=== PATIENT | male | born 1960 ===

== ENCOUNTER 2018-03-31 21:05 | Inpatient (IN) | payer OTHER ==
[2018-03-31 21:05] VITALS: PULSE 87
[2018-03-31 21:14] VITALS: BMI 24.5
--- NOTE | 2018-03-31 21:17 | ED PDOC ---
Arrival/HPI - General Chief Complaint: Chest Pain Time Seen by Provider: 03/31/18 21:08 Historian: Patient, Family - History of Present Illness Narrative History of Present Illness (Text): 03/31/18 21:16 Prasanth Lamas is a 58 year old male, whose past medical history includes atrial fibrillation, hypertension, cardiomyopathy, and alcohol abuse, who presents to the Emergency department accompanied by family complaining of chest pain. Patient states he has been experiencing intermittent chest heaviness radiating to his left shoulder for the past 2 days, worsening tonight. Patient states he stopped taking his medication for his atrial fibrillation. Patient denies any fever, chills, shortness of breath, nausea, vomiting, back pain, neck pain, headache, dizziness, ideation or any other complaints. Symptom Onset: Gradual Symptom Course: Intermittent, Worsening Quality: Other (Heaviness) Activities at Onset: Light Context: Home Past Medical History - Provider Review Nursing Documentation Reviewed: Yes - Infectious Disease Hx of Infectious Diseases: None - Tetanus Immunization Tetanus Immunization: Unknown - Past Medical History Past Medical History: No Previous - Cardiac Hx Cardiac Disorders: Yes Hx Atrial Fibrillation: Yes Hx Cardiac Arrhythmia: Yes (afib) - Pulmonary Hx Respiratory Disorders: No - Neurological Hx Neurological Disorder: No - HEENT Hx HEENT Disorder: No - Renal Hx Renal Disorder: No - Endocrine/Metabolic Hx Endocrine Disorders: No - Hematological/Oncological Hx Blood Disorders: No - Integumentary Hx Dermatological Disorder: No - Musculoskeletal/Rheumatological Hx Musculoskeletal Disorders: Yes Hx Falls: No Hx Osteoporosis: Yes (left shoulder) - Gastrointestinal Hx Gastrointestinal Disorders: No - Genitourinary/Gynecological Hx Genitourinary Disorders: No - Psychiatric Hx Psychophysiologic Disorder: No Hx Substance Use: No - Past Surgical History Past Surgical History: No Previous - Anesthesia Hx Anesthesia Reactions: No - Suicidal Assessment Feels Threatened In Home Enviroment: No Family/Social History - Physician Review Nursing Documentation Reviewed: Yes Family/Social History: Unknown Family HX Smoking Status: Never Smoked Hx Alcohol Use: Yes (started again 4 days ago) Frequency of alcohol use: Daily Hx Substance Use: No Hx Substance Use Treatment: No Allergies/Home Meds Allergies/Adverse Reactions: Allergies No Known Allergies Allergy (Verified 03/31/18 21:09) Review of Systems - Physician Review All systems were reviewed & negative as marked: Yes - Review of Systems Constitutional: Normal. absent: Fevers Eyes: Normal ENT: Normal Respiratory: Normal. absent: SOB, Cough Cardiovascular: Chest Pain Gastrointestinal: Normal. absent: Abdominal Pain, Diarrhea, Nausea, Vomiting Genitourinary Male: Normal. absent: Dysuria, Frequency, Hematuria, Urinary Output Changes Musculoskeletal: Normal. absent: Back Pain, Neck Pain Skin: Normal. absent: Rash Neurological: Normal. absent: Headache, Dizziness Endocrine: Normal Hemo/Lymphatic: Normal Psychiatric: Normal Physical Exam Vital Signs Reviewed: Yes Vital Signs Temp Pulse Resp BP Pulse Ox 03/31/18 22:49 118 H 136/94 H 03/31/18 21:05 98.2 F 88 18 130/93 H 99 Temperature: Afebrile Blood Pressure: Normal Pulse: Regular Respiratory Rate: Normal Appearance: Positive for: Well-Appearing, Non-Toxic, Comfortable Pain Distress: None Mental Status: Positive for: Alert and Oriented X 3 - Systems Exam Head: Present: Atraumatic, Normocephalic Pupils: Present: PERRL Extroacular Muscles: Present: EOMI Conjunctiva: Present: Normal Mouth: Present: Moist Mucous Membranes Neck: Present: Normal Range of Motion Respiratory/Chest: Present: Clear to Auscultation, Good Air Exchange. No: Respiratory Distress, Accessory Muscle Use Cardiovascular: Present: Normal S1, S2, Irregular Rhythm (Irregular, regular rhythm). No: Murmurs Abdomen: No: Tenderness, Distention, Peritoneal Signs Back: Present: Normal Inspection Upper Extremity: Present: Normal Inspection. No: Cyanosis, Edema Lower Extremity: Present: Normal Inspection. No: Edema Neurological: Present: GCS=15, CN II-XII Intact, Speech Normal Skin: Present: Warm, Dry, Normal Color. No: Rashes Psychiatric: Present: Alert, Oriented x 3, Normal Insight, Normal Concentration Medical Decision Making ED Course and Treatment: 03/31/18 21:16 Impression: 58 year old male complaining of chest heaviness radiating to left shoulder\ Plan: -- EKG -- Chest X-ray -- Labs, cardiac enzymes -- Aspirin -- Nitroglycerin -- Cardizem -- Morphine -- Reassess and disposition Prior Visits: Notes and results from previous visits were reviewed. Progress Notes: Reviewed EKG, a fib at [address] RVR. Non-specific ST/T wave changes. 03/31/18 22:43 Chest X-ray reviewed, shows no acute processes. 03/31/18 22:51 Case discussed with biomedical equipment tech diamond sizer and grader, who is aware and agrees with plan. 03/31/18 22:[address] Oakley, who is aware and agrees with plan. Accepts pt in to the hospitalist service. Pt will go to Telemetry observation for chest pain and atrial fibrillation. - Lab Interpretations Lab Results: 03/31/18 21:45 03/31/18 21:45 Lab Results 03/31/18 21:45: WBC 11.1 H D, RBC 4.85, Hgb 16.0, Hct 45.0, MCV 92.8, MCH 33.0, MCHC 35.6, RDW 14.3, Plt Count 298, MPV 9.1 03/31/18 21:45: Sodium 144, Potassium 4.4, Chloride 102, Carbon Dioxide 27, Anion Gap 20, BUN 16, Creatinine 0.9, Est GFR ( Amer) > 60, Est GFR (Non- Af Amer) > 60, Random Glucose 109, Calcium 8.6, Total Bilirubin 0.3, AST 77 H D , ALT 53, Alkaline Phosphatase 119, Lactate Dehydrogenase 686, Total Creatine Kinase 106, Troponin I < 0.01, Total Protein 8.3, Albumin 4.7, Globulin 3.6, Albumin/Globulin Ratio 1.3 03/31/18 21:45: PT 10.2, INR 0.90 L, APTT 27.6 - RAD Interpretation Radiology Orders: 03/31/18 21:18 CHEST PORTABLE [RAD] Stat Preforming Machine Operator: ED Physician - EKG Interpretation Interpreted by ED Physician: Yes Type: 12 lead EKG - Medication Orders Current Medication Orders: diltiaZEM IVPB 100mg in NS (Cardizem 100mg In Ns) 100 mls @ 5 mls/hr IV .Q20H PRN; Protocol; 5 MG/HR PRN Reason: TITRATE PER MD ORDER Discontinued Medications Aspirin (Aspirin) 325 mg PO ONCE STA Stop: 03/31/18 21:27 Last Admin: 03/31/18 22:50 Dose: 325 mg Diltiazem HCl (Cardizem) 15 mg IVP ONCE ONE Stop: 03/31/18 21:24 Last Admin: 03/31/18 22:49 Dose: 15 mg IVP Administration Document 03/31/18 22:49 SANCHEZ (Rec: 03/31/18 22:49 [id number] [id number]) Charges for Administration # of IVP Administrations 1 MAR Pulse and Blood Pressure Document 03/31/18 22:49 SANCHEZ (Rec: 03/31/18 22:49 [email or web address] [id number]) Pulse Pulse Rate (60-90 beats/min) 118 Blood Pressure Blood Pressure (100/60-150/90 mm Hg) 136/94 Enoxaparin Sodium (Lovenox) 70 mg SC STAT STA PRN Reason: Protocol Stop: 03/31/18 22:42 Last Admin: 03/31/18 22:50 Dose: 70 mg Subcutaneous Administrations Document 03/31/18 22:50 SANCHEZ (Rec: 03/31/18 22:51 [id number] [id number]) Injection Site MAR Injection Site Right Abdomen Charges for Administration # of Subcutaneous Administrations 1 Morphine Sulfate (Morphine) 2 mg IVP STAT STA Stop: 03/31/18 21:27 Last Admin: 03/31/18 22:50 Dose: 2 mg MAR Pain Assessment Document 03/31/18 22:50 SANCHEZ (Rec: 03/31/18 22:50 SANCHEZ [id number]) Pain Reassessment Is this a pain reassessment? No IVP Administration Document 03/31/18 22:50 SANCHEZ (Rec: 03/31/18 22:50 SANCHEZ [id number]) Charges for Administration # of IVP Administrations 1 Morphine Sulfate (Morphine) 4 mg IVP STAT STA Stop: 03/31/18 22:50 Nitroglycerin (Nitro-Bid 2% Oint) 1 ea TOP ONCE STA Stop: 03/31/18 21:27 Last Admin: 03/31/18 22:51 Dose: 1 ea - Scribe Statement The provider has reviewed the documentation as recorded by the Scribtala Jasso All medical record entries made by the Tiffanieibtala were at my direction and personally dictated by me. I have reviewed the chart and agree that the record accurately reflects my personal performance of the history, physical exam, medical decision making, and the department course for this patient. I have also personally directed, reviewed, and agree with the discharge instructions and disposition. Disposition/Present on Arrival - Present on Arrival Any Indicators Present on Arrival: No History of DVT/PE: No History of Uncontrolled Diabetes: No Urinary Catheter: No History of Decub. Ulcer: No History Surgical Site Infection Following: None - Disposition Have Diagnosis and Disposition been Completed?: Yes Diagnosis: Atrial fibrillation with RVR, Chest pain in adult Disposition: HOSPITALIZED Disposition Time: 22:57 Condition: STABLE Discharge Instructions (ExitCare): Chest Pain (ED) Forms: [employer] Contacts (Spanish)
[2018-03-31] MEDS ORDERED: Nitroglycerin 2% Ointment Foilpak UD TOP STA (21:26)
[2018-03-31] MEDS ORDERED: Morphine 2 mg/ml ISec IVP STA (21:26)
[2018-03-31 21:52] LABS: MEAN CELL VOLUME 92.8 fl (80.0-105.0); MEAN CORPUSCULAR HGB CONC 35.6 g/dl (31.0-37.0); MEAN PLATELET VOLUME 9.1 fl (7.0-11.0); RBC 4.85 10^6/uL (3.5-6.1); RED CELL DISTRIBUTION WIDTH 14.3 % (11.5-14.5); WHITE BLOOD COUNT 11.1 10^3/ul (4.5-11.0)
[2018-03-31 22:01] LABS: ALB/GLOB RATIO 1.3 (1.1-1.8); ALBUMIN 4.7 g/dL (3.0-4.8); CALCIUM 8.6 mg/dL (8.4-10.5); GFR AFRICAN-AMERICAN > 60; GFR NON-AFRICAN AMERICAN > 60
[2018-03-31 22:07] LABS: ALT/SGPT 53 U/L (7-56); AST/SGOT 77 U/L (17-59); BLOOD UREA NITROGEN 16 mg/dL (7-21); INR 0.9 (0.93-1.08); PARTIAL THROMBOPLASTIN TIME 27.6 Seconds (25.1-36.5); PROTHROMBIN TIME 10.2 SECONDS (9.4-12.5)
[2018-03-31 22:13] LABS: TROPONIN I < 0.01 ng/mL
[2018-03-31] MEDS ORDERED: Enoxaparin 80 mg Syringe SC STA (22:41)
[2018-03-31] MEDS ORDERED: Morphine 4 mg/ml ISec IVP STA (22:49)
[2018-03-31] MEDS ORDERED: diltiaZEM IVPB 100mg in NS 100 ML IV PRN (22:49)
--- NOTE | 2018-03-31 23:46 | CP.PCM.HP ---
<Mac Giordano - Last Filed: 04/01/18 01:52> History of Present Illness - History of Present Illness History of Present Illness: PGY-1 H&P for Dr. Oakley This is a 58 year old male with PMHx A-fib (not on anticoagulation), cardiomyopathy (EF 46%), medication non-compliance, alcohol abuse, shoulder arthritis who presented to the hospital complaining of left sided chest pain. Per patient, this began 2 days ago and has been constant, pressure-like in sensation. There is radiation of pain to the left arm although this is complicated by the fact that the patient states that he has left shoulder arthritis. The patient has not taken medications in months as he has run out of his Lopressor and Aspirin. When asked why he did not see a physician to get more , he replied that he thought he felt fine. Patient admits to having been sober for a year before relapsing and drinking alcohol daily for the past 5 days. His last drink was earlier today at approximately 19:00. Patient admits intermittent palpitations, but he denies shortness of breath. PMHx: A-fib (not on anticoagulation), cardiomyopathy (EF 46%), medication non- compliance, alcohol abuse, shoulder arthritis PSHx: denies Allergies: NKDA Social: States that he smoked briefly as a teenager less than 1 ppd for 3 years. Former alcohol abuser (8-10 shots of vodka daily) with relapse 5 days ago. Has been drinking daily since then with last drink today at 19:00. Denies drug use. Works as a prepper. Family Hx: Father with alzheimer's disease, sister with breast cancer PMD: denies Home meds: Was prescribed Lopressor and ASA on previous visit but does not take them anymore Present on Admission - Present on Admission Any Indicators Present on Admission: No Review of Systems - Constitutional Constitutional: absent: Chills, Fever - EENT Eyes: absent: Change in Vision Ears: absent: Decreased Hearing Nose/Mouth/Throat: absent: Nasal Congestion - Cardiovascular Cardiovascular: Chest Pain, Palpitations (intermittent) - Respiratory Respiratory: absent: Dyspnea - Gastrointestinal Gastrointestinal: absent: Abdominal Pain, Nausea, Vomiting - Genitourinary Genitourinary: absent: Dysuria - Musculoskeletal Musculoskeletal: Other (left shoulder pain). absent: Back Pain - Integumentary Integumentary: absent: Rash - Psychiatric Psychiatric: Anxiety - Endocrine Endocrine: Palpitations (intermittent) Past Patient History - Infectious Disease Hx of Infectious Diseases: None - Tetanus Immunizations Tetanus Immunization: Unknown - Past Social History Smoking Status: Never Smoked - CARDIAC Hx Cardiac Disorders: Yes Hx Atrial Fibrillation: Yes Hx Cardia Arrhythmia: Yes (afib) - PULMONARY Hx Respiratory Disorders: No - NEUROLOGICAL Hx Neurological Disorder: No - HEENT Hx HEENT Problems: No - RENAL Hx Chronic Kidney Disease: No - ENDOCRINE/METABOLIC Hx Endocrine Disorders: No - HEMATOLOGICAL/ONCOLOGICAL Hx Blood Disorders: No - INTEGUMENTARY Hx Dermatological Problems: No - MUSCULOSKELETAL/RHEUMATOLOGICAL Hx Musculoskeletal Disorders: Yes Hx Falls: No Hx Osteoporosis: Yes (left shoulder) - GASTROINTESTINAL Hx Gastrointestinal Disorders: No - GENITOURINARY/GYNECOLOGICAL Hx Genitourinary Disorders: No - PSYCHIATRIC Hx Psychophysiologic Disorder: No Hx Substance Use: No - SURGICAL HISTORY Hx Surgeries: No - ANESTHESIA Hx Anesthesia Reactions: No Meds Allergies/Adverse Reactions: Allergies Allergy/AdvReac Type Severity Reaction Status Date / Time No Known Allergies Allergy Verified 03/31/18 21:09 Physical Exam - Constitutional Appears: No Acute Distress - Head Exam Head Exam: ATRAUMATIC, NORMOCEPHALIC - Eye Exam Eye Exam: EOMI, PERRL - ENT Exam ENT Exam: Mucous Membranes Moist - Respiratory Exam Respiratory Exam: Clear to Auscultation Bilateral, NORMAL BREATHING PATTERN. absent: Rales, Rhonchi, Wheezes - Cardiovascular Exam Cardiovascular Exam: Irregular Rhythm, +S1, +S2. absent: Tachycardia, JVD - GI/Abdominal Exam GI & Abdominal Exam: Normal Bowel Sounds, Soft. absent: Distended, Tenderness - Extremities Exam Extremities exam: Negative for: pedal edema - Neurological Exam Neurological exam: Alert, CN II-XII Intact, Oriented x3 - Psychiatric Exam Psychiatric exam: Anxious - Skin Skin Exam: Dry, Warm Results - Vital Signs Recent Vital Signs: Last Vital Signs Temp 98.2 F 03/31/18 21:05 Pulse 77 03/31/18 23:01 Resp 18 03/31/18 23:01 BP 105/72 03/31/18 23:01 Pulse Ox 99 03/31/18 23:01 - Labs Result Diagrams: 03/31/18 21:45 03/31/18 21:45 Assessment & Plan - Assessment and Plan (Free Text) Assessment: 1. Chest pain -initial EKG shows A-fib with RVR @ 118 bpm -initial troponin within normal limits -f/u serial troponins and EKG 2. A-fib with RVR -RVR corrected with 15 mg IV Cardizem that was given in the ED -f/u drug screen -Cardizem 5 mg IV x1 dose prn HR>120 -Lopressor 50 mg PO BID -Lovenox 80 mg SC Q12H ordered (was given dose of 70 mg in the ED) 3. Alcohol Abuse -Counselled on cessation -f/u serum alcohol level -thiamine, folate, MVI -CIWA protocol -seizure precautions -Ativan 2 mg IV Q6 prn agitation Discussed with Dr. Cele Giordano PGY-1 <Cele BLOOM,Mihir - Last Filed: 04/01/18 10:44> Results - Vital Signs Recent Vital Signs: Last Vital Signs Temp 97.7 F 04/01/18 05:46 Pulse 148 H 04/01/18 09:26 Resp 20 04/01/18 05:46 BP 122/80 04/01/18 09:26 Pulse Ox 96 04/01/18 05:46 - Labs Result Diagrams: 04/01/18 04:35 04/01/18 04:35 Labs: Laboratory Results - last 24 hr 04/01/18 04/01/18 04/01/18 04:35 04:35 04:35 WBC 10.1 RBC 4.26 Hgb 13.8 L D Hct 39.4 L MCV 92.5 MCH 32.4 MCHC 35.0 RDW 14.2 Plt Count 247 MPV 9.1 Gran % 76.5 H Lymph % (Auto) 17.3 L Rush % (Auto) 5.0 Eos % (Auto) 0.7 L Baso % (Auto) 0.5 Gran # 7.72 H Lymph # (Auto) 1.8 Rush # (Auto) 0.5 Eos # (Auto) 0.1 Baso # (Auto) 0.05 Sodium 140 Potassium 4.5 Chloride 103 Carbon Dioxide 23 Anion Gap 19 BUN 16 Creatinine 0.8 Est GFR ( Amer) > 60 Est GFR (Non-Af Amer) > 60 Random Glucose 131 H Calcium 8.4 Phosphorus 3.2 Magnesium 1.7 Total Bilirubin 0.4 AST 49 ALT 51 Alkaline Phosphatase 111 Troponin I < 0.01 Total Protein 7.5 Albumin 4.3 Globulin 3.2 Albumin/Globulin Ratio 1.3 Triglycerides 151 Cholesterol 208 H LDL Cholesterol Direct 126 HDL Cholesterol 72 H Free T4 TSH 3rd Generation 0.40 L 04/01/18 04/01/18 09:30 09:30 WBC RBC Hgb Hct MCV MCH MCHC RDW Plt Count MPV Gran % Lymph % (Auto) Rush % (Auto) Eos % (Auto) Baso % (Auto) Gran # Lymph # (Auto) Rush # (Auto) Eos # (Auto) Baso # (Auto) Sodium Potassium Chloride Carbon Dioxide Anion Gap BUN Creatinine Est GFR ( Amer) Est GFR (Non-Af Amer) Random Glucose Calcium Phosphorus Magnesium Total Bilirubin AST ALT Alkaline Phosphatase Troponin I < 0.01 Total Protein Albumin Globulin Albumin/Globulin Ratio Triglycerides Cholesterol LDL Cholesterol Direct HDL Cholesterol Free T4 0.98 TSH 3rd Generation Attending/Attestation - Attestation I have personally seen and examined this patient.: Yes I have fully participated in the care of the patient.: Yes I have reviewed all pertinent clinical information: Yes Notes (Text): -I agree with the above H&P (including assessment and plan) completed by the resident physician.
[2018-04-01 04:47] LABS: BASO # 0.05 K/mm3 (0.0-2.0); BASO % 0.5 % (0.0-3.0); EOS # 0.1 (0.0-0.7); EOS % 0.7 % (1.5-5.0); GRAN # 7.72 (1.4-6.5); GRAN % 76.5 % (50.0-68.0); LYMPH # 1.8 (1.2-3.4); LYMPH % 17.3 % (22.0-35.0); MEAN CELL VOLUME 92.5 fl (80.0-105.0); MEAN CORPUSCULAR HEMOGLOBIN 32.4 pg (25.0-35.0); MEAN PLATELET VOLUME 9.1 fl (7.0-11.0); MONO # 0.5 (0.1-0.6); RBC 4.26 10^6/uL (3.5-6.1); RED CELL DISTRIBUTION WIDTH 14.2 % (11.5-14.5); WHITE BLOOD COUNT 10.1 10^3/ul (4.5-11.0)
[2018-04-01 04:52] LABS: HEMOGLOBIN 13.8 g/dL (14.0-18.0)
[2018-04-01 05:07] LABS: LDL CHOLESTEROL 126 mg/dL (0-129); TROPONIN I < 0.01 ng/mL
[2018-04-01 05:17] LABS: ALB/GLOB RATIO 1.3 (1.1-1.8); ALBUMIN 4.3 g/dL (3.0-4.8); ALT/SGPT 51 U/L (7-56); AST/SGOT 49 U/L (17-59); BLOOD UREA NITROGEN 16 mg/dL (7-21); CALCIUM 8.4 mg/dL (8.4-10.5); GFR AFRICAN-AMERICAN > 60; GFR NON-AFRICAN AMERICAN > 60; HDL CHOLESTEROL 72 mg/dL (29-60)
[2018-04-01] MEDS: Multivitamin With Minerals Tab PO SCH (07:59)
--- NOTE | 2018-04-01 09:21 | RAD ---
HISTORY: chest pain COMPARISON: 11/18/2017 FINDINGS: LUNGS: No active pulmonary disease. PLEURA: No significant pleural effusion identified, no pneumothorax apparent. CARDIOVASCULAR: Normal. OSSEOUS STRUCTURES: No significant abnormalities. VISUALIZED UPPER ABDOMEN: Normal. OTHER FINDINGS: None. IMPRESSION: No active disease.
[2018-04-01] MEDS: diltiaZEM IVPB 100mg in NS 100 ML IV SCH (09:25)
[2018-04-01] MEDS: Pantoprazole 40 mg EC Tab PO SCH (09:28)
[2018-04-01] MEDS ORDERED: Enoxaparin 80 mg Syringe SC SCH (10:30)
--- NOTE | 2018-04-01 11:31 | CP.PCM.PN ---
<Neha Stewart - Last Filed: 04/01/18 11:27> Subjective - Date & Time of Evaluation Date of Evaluation: 04/01/18 Time of Evaluation: 11:27 - Subjective Subjective: Neha Stewart, PGY1, Progress note for Dr Benjamin: Pt seen and examined at bedside. No acute events overnight. Pt's HR elevated, afib, started on cardizem drip per Cardio. Reports left sided shoulder pain, denies cp, sob, fevers, chills, nausea, vomiting, abdominal pain, leg swelling. Objective - Vital Signs/Intake and Output Vital Signs (last 24 hours): Temp Pulse Resp BP Pulse Ox 97 F L 91 H 18 114/87 96 04/01/18 11:25 04/01/18 11:25 04/01/18 11:25 04/01/18 11:25 04/01/18 05:46 Intake and Output: 04/01/18 04/01/18 06:59 18:59 Intake Total 480 Output Total 750 Balance -270 - Medications Medications: Current Medications Aspirin (Aspirin Chewable) 81 mg PO DAILY [facility] Last Admin: 04/01/18 09:25 Dose: 81 mg Atorvastatin Calcium (Lipitor) 40 mg PO DIN [facility] Diltiazem HCl (Cardizem) 5 mg IVP ONCE PRN PRN Reason: HR>120 Stop: 04/01/18 23:34 Last Admin: 04/01/18 03:49 Dose: 5 mg Folic Acid (Folic Acid) 1 mg PO DAILY [facility] Last Admin: 04/01/18 09:26 Dose: 1 mg diltiaZEM IVPB 100mg in NS (Cardizem 100mg In Ns) 100 mls @ 5 mls/hr IV .Q20H [facility] PRN Reason: 5 MG/HR Last Admin: 04/01/18 09:25 Dose: 5 mls/hr Lorazepam (Ativan) 2 mg IVP Q6H PRN; Protocol PRN Reason: Agitation Last Admin: 04/01/18 05:05 Dose: 2 mg Metoprolol Tartrate (Lopressor) 50 mg PO BID [facility] Last Admin: 04/01/18 09:26 Dose: 50 mg Multivitamins/Minerals (Therapeutic-M Tab) 1 tab PO 0800 [facility] Last Admin: 04/01/18 07:59 Dose: 1 tab Pantoprazole Sodium (Protonix Ec Tab) 40 mg PO DAILY [facility] Last Admin: 04/01/18 09:28 Dose: 40 mg Thiamine HCl (Vitamin B1 Tab) 100 mg PO DAILY [facility] Last Admin: 04/01/18 09:27 Dose: 100 mg - Labs Labs: 04/01/18 04:35 04/01/18 04:35 PT 10.2 SECONDS (9.4-12.5) 03/31/18 21:45 INR 0.90 (0.93-1.08) L 03/31/18 21:45 APTT 27.6 Seconds (25.1-36.5) 03/31/18 21:45 - Constitutional Appears: Non-toxic, No Acute Distress - Head Exam Head Exam: ATRAUMATIC, NORMOCEPHALIC - Eye Exam Eye Exam: EOMI, PERRL. absent: Conjunctival injection, Nystagmus, Scleral icterus Pupil Exam: NORMAL ACCOMODATION, PERRL. absent: Fixed, Irregular, Miosis, Unequal - ENT Exam ENT Exam: Mucous Membranes Moist - Neck Exam Neck Exam: Full ROM - Respiratory Exam Respiratory Exam: Clear to Ausculation Bilateral, NORMAL BREATHING PATTERN. absent: Accessory Muscle Use, Chest Wall Tenderness, Prolonged Expiratory Phase , Rhonchi, Wheezes - Cardiovascular Exam Cardiovascular Exam: Tachycardia. absent: Murmur - GI/Abdominal Exam GI & Abdominal Exam: Soft, Normal Bowel Sounds. absent: Distended, Firm, Guarding, Rigid, Tenderness, Mass, Organomegaly, Rebound - Extremities Exam Extremities Exam: Normal Inspection, Tenderness (left shoulder). absent: Calf Tenderness, Pedal Edema - Back Exam Back Exam: NORMAL INSPECTION - Neurological Exam Neurological Exam: Alert, Awake, Oriented x3 - Psychiatric Exam Psychiatric exam: Normal Affect, Normal Mood - Skin Skin Exam: Dry, Normal Color, Warm Assessment and Plan - Assessment and Plan (Free Text) Assessment: 58 year old male with PMH afib (not on AC 2/2 falls, alcoholic), cardiomyopathy (EF 26%), medication noncompliance, alcohol abuse, shoulder arthritis, presents for chest pain, left shoulder pain, found to be in afib with RVR: A-fib with RVR: -Given 15 mg IV Cardizem that was given in the ED -etoh level elevated -Cardizem 5 mg IV x1 dose prn HR>120 -Lopressor 50 mg PO BID -Started Cardizem drip Left shoulder pain: 2/2 past injury/MSK vs r/o ACS -initial EKG shows A-fib with RVR @ 118 bpm -trops negx3 -EKG afib with RVR 111. -tylenol prn Alcohol withdrawal: -Counseled on cessation -serum alcohol level elevated -thiamine, folate, MVI -CIWA protocol -seizure precautions -Ativan 2 mg IV Q6 prn agitation PPX: protonix, scds Discussed with Dr. Benjamin. Neha Stewart, PGY1 <Alexander Benjamin - Last Filed: 04/02/18 13:08> Objective - Vital Signs/Intake and Output Vital Signs (last 24 hours): Temp Pulse Resp BP Pulse Ox 97.9 F 105 H 20 144/94 H 97 04/02/18 06:00 04/02/18 10:00 04/02/18 06:00 04/02/18 09:36 04/02/18 06:00 Intake and Output: 04/02/18 04/02/18 06:59 18:59 Intake Total 295 Output Total 1900 Balance -1605 - Medications Medications: Current Medications Acetaminophen (Tylenol 325mg Tab) 650 mg PO Q6H PRN PRN Reason: Pain, moderate (4-7) Last Admin: 04/01/18 21:00 Dose: 650 mg Aspirin (Aspirin Chewable) 81 mg PO DAILY [facility] Last Admin: 04/02/18 09:36 Dose: 81 mg Atorvastatin Calcium (Lipitor) 40 mg PO DIN [facility] Last Admin: 04/01/18 18:02 Dose: 40 mg Folic Acid (Folic Acid) 1 mg PO DAILY [facility] Last Admin: 04/02/18 09:34 Dose: 1 mg Ibuprofen (Motrin Tab) 400 mg PO Q6H PRN PRN Reason: Pain, severe (8-10) Last Admin: 04/02/18 09:35 Dose: 400 mg Lorazepam (Ativan) 2 mg IVP Q6H PRN; Protocol PRN Reason: Agitation Last Admin: 04/01/18 20:54 Dose: 2 mg Metoprolol Tartrate (Lopressor) 75 mg PO BID [facility] Last Admin: 04/02/18 09:36 Dose: 75 mg Multivitamins/Minerals (Therapeutic-M Tab) 1 tab PO 0800 [facility] Last Admin: 04/02/18 09:34 Dose: 1 tab Pantoprazole Sodium (Protonix Ec Tab) 40 mg PO DAILY [facility] Last Admin: 04/02/18 09:34 Dose: 40 mg Thiamine HCl (Vitamin B1 Tab) 100 mg PO DAILY [facility] Last Admin: 04/02/18 09:35 Dose: 100 mg - Labs Labs: PT 10.2 SECONDS (9.4-12.5) 03/31/18 21:45 INR 0.90 (0.93-1.08) L 03/31/18 21:45 APTT 27.6 Seconds (25.1-36.5) 03/31/18 21:45 Attending/Attestation - Attestation I have personally seen and examined this patient.: Yes I have fully participated in the care of the patient.: Yes I have reviewed all pertinent clinical information, including history, physical exam and plan: Yes Notes (Text): 04/02/18 13:05 Attending note; Patient seen and examined with resident. Patient is a 58 year old male with PMH afib (not on AC 2/2 falls, alcoholism), medication noncompliance, alcohol abuse, left shoulder arthritis mated with chest discomfort and rapid A. fib. Patient was discharged on aspirin and metoprolol few months ago. Patient did not take any medications at home. Continues to drink alcohol. Currently on telemetry. Continue Cardizem drip. Started on aspirin and metoprolol. Case discussed with cardiology in detail. Not a candidate for long-term anticoagulation due to alcoholism, falls and noncompliance with follow-up. Alcohol abuse; Ativan when necessary. Continue multivitamin, thiamine, folic acid. Continue CIWA protocol. Complete alcohol cessation is strongly advised. Chronic left shoulder pain. Will get PT evaluation. Patient needs outpatient orthopedics follow-up. Upon discharge patient will be referred to [facility] clinic.
--- NOTE | 2018-04-01 15:37 | CON ---
DATE: 04/01/2018 CARDIOLOGY CONSULTATION HISTORY OF PRESENT ILLNESS: The patient presents with atypical chest discomfort after an alcoholic binge. His alcohol level is greater than 234. The patient has documented alcoholism in the past. He has documented cardiomyopathy, likely due to his alcohol. He has chronic atrial fibrillation in which he has been noncompliant with his medications. Currently, he is chest pain free. SOCIAL HISTORY: The patient is a smoker as well. REVIEW OF SYSTEMS: A 14 point review of systems reviewed in detail. He also complains of left shoulder pain from an injury from a fall in the past. PHYSICAL EXAMINATION: VITAL SIGNS: Blood pressure 122/80, the heart rate is atrial fibrillation in the 80s. NECK: Negative JVD. LUNGS: Without rales. HEART: Reveals S1, S2. EXTREMITIES: Without edema. EKG shows atrial fibrillation with nonspecific ST-T changes. LABORATORY DATA: Reveals troponins that are negative x3. Chemistries, BUN and creatinine are unremarkable. Hemoglobin is 13.8. IMPRESSION: 1. Alcoholism. 2. Status post alcoholic binge. 3. Dilated cardiomyopathy, likely secondary to alcoholism. 4. Recurrent atrial fibrillation in which the patient is noncompliant. 5. History of falls. Given these findings, I have discussed with the patient about the need for the alcoholism treatment. The patient is unwilling at this time. I do not feel the patient is a candidate for anticoagulation given his alcoholism and noncompliance as well as recurrent falls. I would treat him with aspirin and beta-blockers. There is no evidence for acute coronary syndrome. We will discontinue telemetry today. Bryan Stone MD
--- NOTE | 2018-04-01 21:37 | CARD ---
APPROVED REPORT EKG Measurement Heart [id number] <Conclusion> Atrial fibrillation with rapid ventricular response Abnormal ECG
[2018-04-02] MEDS: diltiaZEM IVPB 100mg in NS 100 ML IV SCH (06:01)
[2018-04-02 06:09] VITALS: O2SAT 97
[2018-04-02] MEDS: Pantoprazole 40 mg EC Tab PO SCH (09:34)
[2018-04-02] MEDS: Multivitamin With Minerals Tab PO SCH (09:34)
--- NOTE | 2018-04-02 15:59 | PN ---
DATE: 04/02/2018 CARDIOLOGY FOLLOWUP SUBJECTIVE: The patient is without symptoms. OBJECTIVE: VITAL SIGNS: Blood pressure 144/94, the heart rate is in the 80s, atrial fibrillation. NECK: Negative JVD. LUNGS: Without rales. HEART: S1, S2. EXTREMITIES: Without edema. LABORATORY DATA: Hemoglobin is 13.8. Chemistries unremarkable. Troponin's are negative x3. IMPRESSION: 1. Chronic atrial fibrillation secondary to alcoholism. 2. Dilated cardiomyopathy secondary to alcoholism. 3. History of falls. Given these findings, we will discontinue telemetry today. I have discussed with the patient about his issues. We will discontinue his IV Cardizem. From a cardiac perspective, the patient can be discharged. Do not feel that the patient can be safely placed on anticoagulation. Bryan Stone MD
--- NOTE | 2018-04-02 16:39 | CP.PCM.PN ---
<Neha Stewart - Last Filed: 04/02/18 16:36> Subjective - Date & Time of Evaluation Date of Evaluation: 04/02/18 Time of Evaluation: 10:00 - Subjective Subjective: Neha Stewart, PGY1, Progress Note for Dr Benjamin: Patient seen and examined at bedside. No acute events overnight. Denies cp, palpitations, sob, headache, fever, dizziness, abdominal pain. States that his left shoulder pain is better today. Objective - Vital Signs/Intake and Output Vital Signs (last 24 hours): Temp Pulse Resp BP Pulse Ox 97.9 F 70 21 146/99 H 97 04/02/18 12:00 04/02/18 12:00 04/02/18 12:00 04/02/18 12:00 04/02/18 06:00 Intake and Output: 04/02/18 04/02/18 06:59 18:59 Intake Total 295 Output Total 1900 Balance -1605 - Medications Medications: Current Medications Acetaminophen (Tylenol 325mg Tab) 650 mg PO Q6H PRN PRN Reason: Pain, moderate (4-7) Last Admin: 04/01/18 21:00 Dose: 650 mg Aspirin (Aspirin Chewable) 81 mg PO DAILY [facility] Last Admin: 04/02/18 09:36 Dose: 81 mg Atorvastatin Calcium (Lipitor) 40 mg PO DIN [facility] Last Admin: 04/01/18 18:02 Dose: 40 mg Folic Acid (Folic Acid) 1 mg PO DAILY [facility] Last Admin: 04/02/18 09:34 Dose: 1 mg Ibuprofen (Motrin Tab) 400 mg PO Q6H PRN PRN Reason: Pain, severe (8-10) Last Admin: 04/02/18 09:35 Dose: 400 mg Lorazepam (Ativan) 2 mg IVP Q6H PRN; Protocol PRN Reason: Agitation Last Admin: 04/01/18 20:54 Dose: 2 mg Metoprolol Tartrate (Lopressor) 75 mg PO BID [facility] Last Admin: 04/02/18 09:36 Dose: 75 mg Multivitamins/Minerals (Therapeutic-M Tab) 1 tab PO 0800 [facility] Last Admin: 04/02/18 09:34 Dose: 1 tab Pantoprazole Sodium (Protonix Ec Tab) 40 mg PO DAILY [facility] Last Admin: 04/02/18 09:34 Dose: 40 mg Thiamine HCl (Vitamin B1 Tab) 100 mg PO DAILY [facility] Last Admin: 04/02/18 09:35 Dose: 100 mg - Labs Labs: PT 10.2 SECONDS (9.4-12.5) 03/31/18 21:45 INR 0.90 (0.93-1.08) L 03/31/18 21:45 APTT 27.6 Seconds (25.1-36.5) 03/31/18 21:45 - Constitutional Appears: Non-toxic, No Acute Distress - Head Exam Head Exam: ATRAUMATIC, NORMOCEPHALIC - Eye Exam Eye Exam: EOMI, PERRL. absent: Conjunctival injection, Nystagmus, Scleral icterus Pupil Exam: NORMAL ACCOMODATION, PERRL. absent: Irregular, Miosis, Unequal - ENT Exam ENT Exam: Mucous Membranes Moist - Neck Exam Neck Exam: Full ROM - Respiratory Exam Respiratory Exam: Clear to Ausculation Bilateral, NORMAL BREATHING PATTERN. absent: Accessory Muscle Use, Rhonchi, Wheezes, Respiratory Distress - Cardiovascular Exam Cardiovascular Exam: Irregular Rhythm. absent: Murmur - GI/Abdominal Exam GI & Abdominal Exam: Soft, Normal Bowel Sounds. absent: Distended, Firm, Guarding, Rigid, Tenderness, Mass, Organomegaly, Rebound - Extremities Exam Extremities Exam: Normal Inspection. absent: Calf Tenderness, Pedal Edema Additional comments: + left shoulder limited ROM - extension - prior fracture/pain - Back Exam Back Exam: NORMAL INSPECTION - Neurological Exam Neurological Exam: Alert, Awake, Oriented x3 - Psychiatric Exam Psychiatric exam: Normal Affect, Normal Mood - Skin Skin Exam: Dry, Normal Color, Warm Assessment and Plan - Assessment and Plan (Free Text) Assessment: 58 year old male with PMH afib (not on AC 2/2 falls, alcoholic), cardiomyopathy (EF 26%), medication noncompliance, alcohol abuse, shoulder arthritis, presents for chest pain, left shoulder pain, found to be in afib with RVR: A-fib with RVR: -Given 15 mg IV Cardizem that was given in the ED -etoh level elevated -Increased Lopressor to 75 mg PO BID -HR in 80s. discontinued cardizem drip. -CHADSvasc 1, not a good candidate for anticoagulation due to alcoholism, risk for falls. 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 Left shoulder pain: 2/2 past injury/MSK -initial EKG shows A-fib with RVR @ 118 bpm -trops negx3 -EKG afib with RVR 111. -tylenol prn -improving Alcohol withdrawal: -Counseled on cessation -serum alcohol level elevated -thiamine, folate, MVI -CIWA protocol -seizure precautions -Ativan 2 mg IV Q6 prn -low ciwa scores - no withdrawal symptoms noted PPX: protonix, scds Discussed with Dr. Benjamin. Neha Stewart, PGY1 <Alexander Benjamin - Last Filed: 04/02/18 16:55> Objective - Vital Signs/Intake and Output Vital Signs (last 24 hours): Temp Pulse Resp BP Pulse Ox 97.9 F 70 21 146/99 H 97 04/02/18 12:00 04/02/18 12:00 04/02/18 12:00 04/02/18 12:00 04/02/18 06:00 Intake and Output: 04/02/18 04/02/18 06:59 18:59 Intake Total 295 Output Total 1900 Balance -1605 - Medications Medications: Current Medications Acetaminophen (Tylenol 325mg Tab) 650 mg PO Q6H PRN PRN Reason: Pain, moderate (4-7) Last Admin: 04/01/18 21:00 Dose: 650 mg Aspirin (Aspirin Chewable) 81 mg PO DAILY [facility] Last Admin: 04/02/18 09:36 Dose: 81 mg Atorvastatin Calcium (Lipitor) 40 mg PO DIN [facility] Last Admin: 04/01/18 18:02 Dose: 40 mg Folic Acid (Folic Acid) 1 mg PO DAILY [facility] Last Admin: 04/02/18 09:34 Dose: 1 mg Ibuprofen (Motrin Tab) 400 mg PO Q6H PRN PRN Reason: Pain, severe (8-10) Last Admin: 04/02/18 09:35 Dose: 400 mg Lorazepam (Ativan) 2 mg IVP Q6H PRN; Protocol PRN Reason: Agitation Last Admin: 04/01/18 20:54 Dose: 2 mg Metoprolol Tartrate (Lopressor) 75 mg PO BID [facility] Last Admin: 04/02/18 09:36 Dose: 75 mg Multivitamins/Minerals (Therapeutic-M Tab) 1 tab PO 0800 [facility] Last Admin: 04/02/18 09:34 Dose: 1 tab Pantoprazole Sodium (Protonix Ec Tab) 40 mg PO DAILY [facility] Last Admin: 04/02/18 09:34 Dose: 40 mg Thiamine HCl (Vitamin B1 Tab) 100 mg PO DAILY [facility] Last Admin: 04/02/18 09:35 Dose: 100 mg - Labs Labs: PT 10.2 SECONDS (9.4-12.5) 03/31/18 21:45 INR 0.90 (0.93-1.08) L 03/31/18 21:45 APTT 27.6 Seconds (25.1-36.5) 03/31/18 21:45 Attending/Attestation - Attestation I have personally seen and examined this patient.: Yes I have fully participated in the care of the patient.: Yes I have reviewed all pertinent clinical information, including history, physical exam and plan: Yes Notes (Text): 04/02/18 16:52 Attending note; Patient seen and examined with resident. Patient is a 58 year old male with PMH afib (not on AC 2/2 falls, alcoholism), medication noncompliance, alcohol abuse, left shoulder arthritis mated with chest discomfort and rapid A. fib. Patient was discharged on aspirin and metoprolol few months ago. Patient did not take any medications at home. Continues to drink alcohol. Currently on telemetry. Started on aspirin and metoprolol. metoprolol dosage increased. We will DC Cardizem drip and monitor. Not a candidate for long-term anticoagulation due to alcoholism, low chads score , falls and noncompliance with follow-up. Alcohol abuse; Ativan when necessary. Continue multivitamin, thiamine, folic acid. currently not in withdrawal. Chronic left shoulder pain. Will get PT evaluation. Patient needs outpatient orthopedics follow-up. Case discussed with patient and daughter in detail. The diagnosis of alcoholism, noncompliance explained in detail. Patient's family is advised to help the patient with alcohol abstinence and medication compliance. possible discharge home tomorrow if clinically stable. Upon discharge patient will be referred to [facility] [place] clinic.
[2018-04-03 02:08] VITALS: RESP 20; TEMP 98.6
[2018-04-03] MEDS: Multivitamin With Minerals Tab PO SCH (09:37)
[2018-04-03] MEDS: Pantoprazole 40 mg EC Tab PO SCH (09:37)
[2018-04-03 09:39] VITALS: BP 141/85; PULSE 114
--- NOTE | 2018-04-03 09:54 | CP.PCM.DIS ---
<Neha Stewart - Last Filed: 04/03/18 15:28> Provider - Provider Date of Admission: 04/01/18 13:41 Attending physician: Alexander Benjamin MD Consults: Cardio Dr Stone Time Spent in preparation of Discharge (in minutes): 60 Diagnosis - Discharge Diagnosis (1) Alcohol abuse Status: Acute (2) Alcohol withdrawal Status: Acute (3) Atrial fibrillation with RVR Status: Acute (4) Osteoarthritis of left shoulder Status: Acute Hospital Course - Lab Results Lab Results: Most Recent Lab Values WBC 10.1 10^3/ul (4.5-11.0) 04/01/18 04:35 RBC 4.26 10^6/uL (3.5-6.1) 04/01/18 04:35 Hgb 13.8 g/dL (14.0-18.0) L D 04/01/18 04:35 Hct 39.4 % (42.0-52.0) L 04/01/18 04:35 MCV 92.5 fl (80.0-105.0) 04/01/18 04:35 MCH 32.4 pg (25.0-35.0) 04/01/18 04:35 MCHC 35.0 g/dl (31.0-37.0) 04/01/18 04:35 RDW 14.2 % (11.5-14.5) 04/01/18 04:35 Plt Count 247 10^3/uL (120.0-450.0) 04/01/18 04:35 MPV 9.1 fl (7.0-11.0) 04/01/18 04:35 Gran % 76.5 % (50.0-68.0) H 04/01/18 04:35 Lymph % (Auto) 17.3 % (22.0-35.0) L 04/01/18 04:35 Placer % (Auto) 5.0 % (1.0-6.0) 04/01/18 04:35 Eos % (Auto) 0.7 % (1.5-5.0) L 04/01/18 04:35 Baso % (Auto) 0.5 % (0.0-3.0) 04/01/18 04:35 Gran # 7.72 (1.4-6.5) H 04/01/18 04:35 Lymph # (Auto) 1.8 (1.2-3.4) 04/01/18 04:35 Placer # (Auto) 0.5 (0.1-0.6) 04/01/18 04:35 Eos # (Auto) 0.1 (0.0-0.7) 04/01/18 04:35 Baso # (Auto) 0.05 K/mm3 (0.0-2.0) 04/01/18 04:35 PT 10.2 SECONDS (9.4-12.5) 03/31/18 21:45 INR 0.90 (0.93-1.08) L 03/31/18 21:45 APTT 27.6 Seconds (25.1-36.5) 03/31/18 21:45 Sodium 140 mmol/L (132-148) 04/01/18 04:35 Potassium 4.5 mmol/L (3.6-5.0) 04/01/18 04:35 Chloride 103 mmol/L (98-107) 04/01/18 04:35 Carbon Dioxide 23 mmol/L (21-33) 04/01/18 04:35 Anion Gap 19 (10-20) 04/01/18 04:35 BUN 16 mg/dL (7-21) 04/01/18 04:35 Creatinine 0.8 mg/dl (0.8-1.5) 04/01/18 04:35 Est GFR ( Amer) > 60 04/01/18 04:35 Est GFR (Non-Af Amer) > 60 04/01/18 04:35 Random Glucose 131 mg/dL (70-110) H 04/01/18 04:35 Hemoglobin A1c 5.7 % (4.2-6.5) 04/01/18 04:35 Calcium 8.4 mg/dL (8.4-10.5) 04/01/18 04:35 Phosphorus 3.2 mg/dL (2.5-4.5) 04/01/18 04:35 Magnesium 1.7 mg/dL (1.7-2.2) 04/01/18 04:35 Total Bilirubin 0.4 mg/dL (0.2-1.3) 04/01/18 04:35 AST 49 U/L (17-59) 04/01/18 04:35 ALT 51 U/L (7-56) 04/01/18 04:35 Alkaline Phosphatase 111 U/L (38-126) 04/01/18 04:35 Lactate Dehydrogenase 686 U/L (333-699) 03/31/18 21:45 Total Creatine Kinase 106 U/L (35-230) 03/31/18 21:45 Troponin I < 0.01 ng/mL 04/01/18 09:30 Total Protein 7.5 g/dL (5.8-8.3) 04/01/18 04:35 Albumin 4.3 g/dL (3.0-4.8) 04/01/18 04:35 Globulin 3.2 gm/dL 04/01/18 04:35 Albumin/Globulin Ratio 1.3 (1.1-1.8) 04/01/18 04:35 Triglycerides 151 mg/dL (35-160) 04/01/18 04:35 Cholesterol 208 mg/dL (130-200) H 04/01/18 04:35 LDL Cholesterol Direct 126 mg/dL (0-129) 04/01/18 04:35 HDL Cholesterol 72 mg/dL (29-60) H 04/01/18 04:35 Free T4 0.98 ng/dL (0.78-2.19) 04/01/18 09:30 TSH 3rd Generation 0.40 mIU/mL (0.46-4.68) L 04/01/18 04:35 Alcohol, Quantitative 234 mg/dL (0-10) H 03/31/18 21:32 - Hospital Course Hospital Course: 58 year old male with PMHx A-fib (not on anticoagulation), cardiomyopathy (EF 46 %), medication non-compliance, alcohol abuse, shoulder arthritis who presented to the hospital complaining of left shoulder pain, found to be in afib with RVR 2/2 medication noncompliance, alcohol intoxication. Pt given 15mg Cardizem in ED , started on cardizem drip. His HR was then controlled with HR in 80s. Pt also started on lopressor 75 mg PO BID and ASA 81 mg PO daily. Pt advised to adhere to medication regimen. CHADSvasc score low 1, pt not put on anticoagulant due to alcoholism, noncompliance, risk for falls. Cardiology consulted, appreciated recs. Today, pt states that he feels well with left shoulder pain improving, his HR is in 80s afib, discharged home. Discussed with patient's family regarding adherence to medicatio regimen. Scripts printed and handed over to patient. Pt advised alcohol cessation as well. SW contacted patient to apply for [employer], paperwork given. [facility] called to make appt for patient, did not pick up operator call/no voicemail available. Please note that this is a summary of events. Please see full chart for details. Case seen and discussed with Dr Benjamin. Neha Stewart, PGY1 Discharge Exam - Head Exam Head Exam: ATRAUMATIC, NORMOCEPHALIC - Eye Exam Eye Exam: EOMI, PERRL. absent: Conjunctival injection, Nystagmus, Scleral icterus Pupil Exam: NORMAL ACCOMODATION, PERRL. absent: Irregular, Miosis, Mydriatic, Unequal - ENT Exam ENT Exam: Mucous Membranes Moist - Neck Exam Neck exam: Full Rom - Respiratory Exam Respiratory Exam: Clear to PA & Lateral, NORMAL BREATHING PATTERN. absent: Chest Wall Tenderness, Rales, Rhonchi, Respiratory Distress, Stridor - Cardiovascular Exam Cardiovascular Exam: Irregular Rhythm - GI/Abdominal Exam GI & Abdominal Exam: Normal Bowel Sounds, Soft. absent: Distended, Firm, Guarding, Mass, Organomegaly, Pulsatile Mass, Rebound, Rigid, Tenderness - Extremities Exam Extremities exam: normal inspection - Back Exam Back exam: NORMAL INSPECTION - Neurological Exam Neurological exam: Alert, Oriented x3 - Psychiatric Exam Psychiatric exam: Normal Affect, Normal Mood - Skin Skin Exam: Dry, Normal Color, Warm Discharge Plan - Discharge Medications Prescriptions: Aspirin [Aspirin Chewable] 81 mg PO DAILY 30 Days chew Aspirin [Aspirin Chewable] 81 mg PO DAILY #30 chew Atorvastatin [Lipitor] 40 mg PO DIN 30 Days tab Metoprolol Tartrate [Lopressor] 75 mg PO BID 30 Days tab - Follow Up Plan Condition: STABLE Disposition: HOME/ ROUTINE Patient education suggested?: Yes Instructions: Atrial Fibrillation (DC), Alcohol Abuse and Alcoholism (DC), Shoulder Instability (DC) Additional Instructions: - Make appointment with [facility] at [phone] to make an appointment. Please apply for [facility] care - you have the paperwork with you. Follow up with clinic in 1 week. - Take Aspirin, lipitor and metoprolol 75mg two times a day. - Return to ER if any concerns. <Alexander Benjamin - Last Filed: 04/03/18 16:05> Provider - Provider Date of Admission: 04/01/18 13:41 Attending physician: Alexander Benjamin MD Hospital Course - Lab Results Lab Results: Most Recent Lab Values WBC 10.1 10^3/ul (4.5-11.0) 04/01/18 04:35 RBC 4.26 10^6/uL (3.5-6.1) 04/01/18 04:35 Hgb 13.8 g/dL (14.0-18.0) L D 04/01/18 04:35 Hct 39.4 % (42.0-52.0) L 04/01/18 04:35 MCV 92.5 fl (80.0-105.0) 04/01/18 04:35 MCH 32.4 pg (25.0-35.0) 04/01/18 04:35 MCHC 35.0 g/dl (31.0-37.0) 04/01/18 04:35 RDW 14.2 % (11.5-14.5) 04/01/18 04:35 Plt Count 247 10^3/uL (120.0-450.0) 04/01/18 04:35 MPV 9.1 fl (7.0-11.0) 04/01/18 04:35 Gran % 76.5 % (50.0-68.0) H 04/01/18 04:35 Lymph % (Auto) 17.3 % (22.0-35.0) L 04/01/18 04:35 Placer % (Auto) 5.0 % (1.0-6.0) 04/01/18 04:35 Eos % (Auto) 0.7 % (1.5-5.0) L 04/01/18 04:35 Baso % (Auto) 0.5 % (0.0-3.0) 04/01/18 04:35 Gran # 7.72 (1.4-6.5) H 04/01/18 04:35 Lymph # (Auto) 1.8 (1.2-3.4) 04/01/18 04:35 Placer # (Auto) 0.5 (0.1-0.6) 04/01/18 04:35 Eos # (Auto) 0.1 (0.0-0.7) 04/01/18 04:35 Baso # (Auto) 0.05 K/mm3 (0.0-2.0) 04/01/18 04:35 PT 10.2 SECONDS (9.4-12.5) 03/31/18 21:45 INR 0.90 (0.93-1.08) L 03/31/18 21:45 APTT 27.6 Seconds (25.1-36.5) 03/31/18 21:45 Sodium 140 mmol/L (132-148) 04/01/18 04:35 Potassium 4.5 mmol/L (3.6-5.0) 04/01/18 04:35 Chloride 103 mmol/L (98-107) 04/01/18 04:35 Carbon Dioxide 23 mmol/L (21-33) 04/01/18 04:35 Anion Gap 19 (10-20) 04/01/18 04:35 BUN 16 mg/dL (7-21) 04/01/18 04:35 Creatinine 0.8 mg/dl (0.8-1.5) 04/01/18 04:35 Est GFR ( Amer) > 60 04/01/18 04:35 Est GFR (Non-Af Amer) > 60 04/01/18 04:35 Random Glucose 131 mg/dL (70-110) H 04/01/18 04:35 Hemoglobin A1c 5.7 % (4.2-6.5) 04/01/18 04:35 Calcium 8.4 mg/dL (8.4-10.5) 04/01/18 04:35 Phosphorus 3.2 mg/dL (2.5-4.5) 04/01/18 04:35 Magnesium 1.7 mg/dL (1.7-2.2) 04/01/18 04:35 Total Bilirubin 0.4 mg/dL (0.2-1.3) 04/01/18 04:35 AST 49 U/L (17-59) 04/01/18 04:35 ALT 51 U/L (7-56) 04/01/18 04:35 Alkaline Phosphatase 111 U/L (38-126) 04/01/18 04:35 Lactate Dehydrogenase 686 U/L (333-699) 03/31/18 21:45 Total Creatine Kinase 106 U/L (35-230) 03/31/18 21:45 Troponin I < 0.01 ng/mL 04/01/18 09:30 Total Protein 7.5 g/dL (5.8-8.3) 04/01/18 04:35 Albumin 4.3 g/dL (3.0-4.8) 04/01/18 04:35 Globulin 3.2 gm/dL 04/01/18 04:35 Albumin/Globulin Ratio 1.3 (1.1-1.8) 04/01/18 04:35 Triglycerides 151 mg/dL (35-160) 04/01/18 04:35 Cholesterol 208 mg/dL (130-200) H 04/01/18 04:35 LDL Cholesterol Direct 126 mg/dL (0-129) 04/01/18 04:35 HDL Cholesterol 72 mg/dL (29-60) H 04/01/18 04:35 Free T4 0.98 ng/dL (0.78-2.19) 04/01/18 09:30 TSH 3rd Generation 0.40 mIU/mL (0.46-4.68) L 04/01/18 04:35 Alcohol, Quantitative 234 mg/dL (0-10) H 03/31/18 21:32 Attending/Attestation - Attestation I have personally seen and examined this patient.: Yes I have fully participated in the care of the patient.: Yes I have reviewed all pertinent clinical information, including history, physical exam and plan: Yes Notes (Text): 04/03/18 16:02 Attending note; Patient seen and examined with resident. Patient is a 58 year old male with PMH afib (not on AC 2/2 falls, alcoholism), medication noncompliance, alcohol abuse, left shoulder arthritis mated with chest discomfort and rapid A. fib. Patient was discharged on aspirin and metoprolol few months ago. Patient did not take any medications at home. Continues to drink alcohol. Seen by cardiology. Prescription for aspirin and metoprolol given. Not a candidate for long-term anticoagulation due to alcoholism, low chads score , falls and noncompliance with follow-up. Alcohol abuse; Ativan when necessary. Continue multivitamin, thiamine, folic acid. currently not in withdrawal. Case discussed with patient and daughter in detail. The diagnosis of alcoholism, noncompliance explained in detail. Patient's family is advised to help the patient with alcohol abstinence and medication compliance. Discharge home today. Upon discharge patient will be referred [place] [facility] [place]
== END 2018-04-03 11:34 | disposition home or self-care (01) | DRG 750 ==
LOC: ED 21:05 → ERH 22:58 → 2RNO 04-01 04:17 → OBSVTOIN 04-01 13:41
PROVIDERS: ADMIT Internal Medicine; ATTEND Internal Medicine
DX: F10.239 Alcohol dependence with withdrawal, unspecified (principal); I42.0 Dilated cardiomyopathy; I42.6 Alcoholic cardiomyopathy; I48.2 Chronic atrial fibrillation; I10 Essential (primary) hypertension; F17.200 Nicotine dependence, unspecified, uncomplicated; G89.29 Other chronic pain; M19.012 Primary osteoarthritis, left shoulder; M81.0 Age-related osteoporosis without current pathological fracture; R29.6 Repeated falls; Z79.82 Long term (current) use of aspirin; Z79.899 Other long term (current) drug therapy; Z91.14 Patient's other noncompliance with medication regimen; Z91.19 Patient's noncompliance with other medical treatment and regimen; Z91.81 History of falling; Z82.0 Family history of epilepsy and other diseases of the nervous system; Z80.3 Family history of malignant neoplasm of breast; Y90.7 Blood alcohol level of 200-239 mg/100 ml